=== PATIENT | female | born 1950 | race Caucasian/White ===

== ENCOUNTER 2020-02-20 12:47 | Observation (INO) | payer MEDICARE, OTHER ==
[2020-02-20] MEDS ORDERED: Morphine 4 MG/ML VIAL ONE (13:28)
[2020-02-20 17:19] VITALS: BMI 27.1
[2020-02-20] MEDS ORDERED: TETANUS AND DIPHTHERIA TOX/PF 0.5 ML DISP.SYRIN IM ONE (17:30)
[2020-02-20] MEDS ORDERED: Crotalidae Polyvlnt Antivenin 2 GM in Sodium Chloride 0.9% 250 ML 250 ML IVPB PRN (17:30)
[2020-02-20] MEDS ORDERED: Ondansetron PF 4 MG/2 ML Vial IVP PRN (17:30)
[2020-02-20] MEDS ORDERED: Crotalidae Polyvlnt Antivenin 4 GM in Sodium Chloride 0.9% 250 ML 250 ML IVPB SCH (17:30)
[2020-02-20] MEDS ORDERED: Morphine 4 MG/ML VIAL SLOW IVP PRN (17:30)
[2020-02-20] MEDS ORDERED: diphenhydrAMINE 50 MG/ML VIAL IVP PRN (17:30)
[2020-02-20] MEDS ORDERED: HOLD ALL ANTI-COAGULANTS/ANTI-PLATELETS/NSAIDS PO SCH (17:30)
[2020-02-20] MEDS ORDERED: Morphine 2 MG/ML SYRINGE SLOW IVP PRN (17:42)
--- NOTE | 2020-02-20 18:08 | PDOC.HHP ---
Hospitalist HPI - History of Present Illness snake bite History of Present Illness: THis is a 69 year old female with no past medical history who presents to the ER after a snake bite. THe patient states she was picking cucumbers from her garden when a copperhead snake bit her. Shortly afterwards she noticed pain in her index finger and swelling extending up to her wrist. She states the swelling was so severe she was unable to bend her fingers and her index finger was touching her other fingers. SHe denies fevers, chills, shortness of breath, cough. ED Course: WHen the patient presented to the ER, her vitals were noted to be stable. She received 4 vials of Crofab treatment and was admitted for further monitoring. Patient reports that her wrist swelling has improved from the drawn margins and she can now bend her fingers. Hospitalist ROS - Review of Systems Constitutional: denies: fever, chills Eyes: denies: pain ENT: denies: ear discharge Respiratory: denies: cough, dry, shortness of breath Cardiovascular: denies: chest pain, palpitations, orthopnea Gastrointestinal: denies: nausea, vomiting, abdominal pain, diarrhea Genitourinary: denies: dysuria, frequency, incontinence, hematuria Musculoskeletal: denies: neck pain, shoulder pain Hospitalist History - Past Surgical History Past Surgical History: reports: Hysterectomy - Family History Family History: reports: no pertinent history - Social History Smoking Status: Former smoker (was an occasional smoker) Alcohol: reports: Occassional Drugs: reports: none Living Situation: Other (with signifiant other) - Exam General Appearance: NAD, awake alert Eye: PERRL, anicteric sclera ENT: normocephalic atraumatic, no oropharyngeal lesions Neck: no JVD Heart: RRR, no murmur, no gallops, no rubs Respiratory: CTAB, no wheezes, no rales, no ronchi Gastrointestinal: soft, non-tender, non-distended, normal bowel sounds Extremities: no cyanosis, no clubbing, no edema Skin: normal turgor, no lesions, no rashes Neurological: cranial nerve grossly intact, normal sensation to touch, no focal deficits, no new deficit Musculoskeletal: normal tone, normal strength, no muscle wasting Psychiatric: normal affect, normal behavior, A&O x 3, oriented to person Hospitalist H&P A/P - Plan Plan: This is a 69 year old female who presented to the ER after a snakebite Snake bite with surrounding cellulitis - s/p first infusion of Crofab. Will give another dose now, then q6 per protocol - will start augmentin empirically as prophylaxis Hyperglycemia - glucose 129, will recheck A1C in the am
[2020-02-20 19:06] LABS: Platelet Count 237 thou/uL (130-400)
[2020-02-20 19:20] LABS: PTT 29.5 sec (22.9-36.1)
[2020-02-20 19:21] LABS: INR-International Normal Ratio 0.9; Prothrombin Time 12.4 sec (12.0-14.7)
[2020-02-20] MEDS ORDERED: Crotalidae Polyvlnt Antivenin 2 GM in Sodium Chloride 0.9% 250 ML 250 ML IVPB SCH (20:00)
[2020-02-20] MEDS: Amoxicillin/Potassium Clav 875 MG TAB PO SCH (20:11)
[2020-02-20] MEDS: Crotalidae Polyvlnt Antivenin 2 GM in Sodium Chloride 0.9% 250 ML 250 ML IVPB SCH (20:11)
[2020-02-21] MEDS: Crotalidae Polyvlnt Antivenin 2 GM in Sodium Chloride 0.9% 250 ML 250 ML IVPB SCH ×2 (02:27→09:19)
[2020-02-21] MEDS: Amoxicillin/Potassium Clav 875 MG TAB PO SCH (09:19)
[2020-02-21 11:40] LABS: Mean Corpuscular HGB CONC 33.8 g/dL (32.0-36.0); Mean Corpuscular Hemoglobin 32.6 pg (27.0-31.0); Mean Corpuscular Volume 96.3 fL (78.0-98.0); Mean Platelet Volume 8.4 fL (7.4-10.4); Platelet Count 229 thou/uL (130-400); RBC Distribution Width 12.2 % (11.5-14.5); Red Blood Cell (RBC) Count 4.61 mill/uL (4.20-5.40); White Blood Cell (WBC) Count 8.2 thou/uL (4.8-10.8)
[2020-02-21 11:46] LABS: Hemoglobin A1c 5.6 % (4.0-6.0); INR-International Normal Ratio 0.9; Prothrombin Time 11.8 sec (12.0-14.7)
[2020-02-21 11:47] LABS: PTT 28.7 sec (22.9-36.1)
[2020-02-21 11:57] LABS: Anion Gap 12 mmol/L (10-20); BUN (Urea Nitrogen) 13 mg/dL (9.8-20.1); Calc. Creatinine Clearance 93 mL/min (70-130); Calcium 8.7 mg/dL (7.8-10.44); Carbon Dioxide 25 mmol/L (23-31); Chloride 106 mmol/L (98-107); Estimated GFR-MDRD 86; Glucose 111 mg/dL (80-115); Potassium 3.9 mmol/L (3.5-5.1); Sodium 139 mmol/L (136-145)
[2020-02-21 12:08] VITALS: BP 121/74; TEMP 98.5
--- NOTE | 2020-02-22 02:34 | DIS ---
DATE OF ADMISSION: 02/20/2020 DATE OF DISCHARGE: 02/21/2020 DISCHARGE DIAGNOSES: 1. Right index finger cellulitis secondary to snake bite. 2. Prediabetes. CONSULTATIONS: None. PROCEDURES: None. BRIEF HISTORY OF PRESENT ILLNESS: This is a 69-year-old female, who presented to the emergency room after a snake bit her right index finger. She then had some swelling of her index finger extending up to her wrist. She was unable to bend her fingers. She went to an outside hospital in [place] and was given CroFab and was transferred here. HOSPITAL COURSE: Snake bite with cellulitis of the right index finger: The patient was noted to have swelling all the way up to her wrist. She did have some improvement after her first infusion of CroFab; however, her swelling did not go down until approximately 6 hours after. Therefore, she was given three additional doses of maintenance CroFab. The following morning she still had swelling of her index finger and some tenderness with the erythema. However, the swelling of her hand was much better and wrist swelling resolved.r. The patient states that she was able to flex her fingers for the first time, which she was not able to do the day prior. She was started on Augmentin on 02/19 and will be discharged with this as prophylaxis for an additional 6 days. She also received tetanus shot while in the hospital. She was advised to follow up with her PCP in a week after completion of her antibiotics. Prediabetes: The patient had a glucose of 129. Her hemoglobin A1c was checked, which was 5.6. She was advised on weight loss on discharge. DISCHARGE PHYSICAL EXAMINATION: VITAL SIGNS: Temperature 98.5, heart rate 60, respiratory rate 17, O2 saturation 96% on room air, and blood pressure 121/74. GENERAL: The patient is alert, awake, and oriented x3. CVS: Regular rate and rhythm with no murmurs, rubs, or gallops. LUNGS: Clear to auscultation bilaterally. MUSCULOSKELETAL: The patient has erythema and 3+ swelling of her right index finger with tenderness to palpation. She has erythema of the distal phalanx; however, normal skin color over the proximal phalanx. She has some mild swelling of her hand, but there is no palpable tenderness. She has full range of motion of her hand and her digits. ABDOMEN: Positive bowel sounds. Soft, nontender, and nondistended. LOWER EXTREMITIES: No edema. PERTINENT LABORATORY DATA: CBC 02/20: Normal. BMP 02/20: Normal. Hemoglobin A1c: 5.6. Coag studies 02/20: PT 11.8, INR 0.9, PTT 28.7, and fibrinogen 389. DISCHARGE CONDITION: Stable. ACTIVITY: As tolerated. DIET: Regular diet. DISCHARGE MEDICATIONS: Augmentin 875 mg p.o. q.12 hours for 6 more days. DISCHARGE INSTRUCTIONS: The patient to follow up with her PCP in a week. She should focus on weight loss for her prediabetes and consider further monitor in this on discharge. Job ID: [id number]
== END 2020-02-21 13:05 | disposition home or self-care (01) ==
LOC: ERS 12:47 → T4-B 17:08 → INTOOBSV 17:08
PROVIDERS: ADMIT Internal Medicine; ATTEND Internal Medicine
DX: T63.091A Toxic effect of venom of other snake, accidental (unintentional), initial encounter (principal); L03.011 Cellulitis of right finger; R73.03 Prediabetes; R73.9 Hyperglycemia, unspecified; Z87.891 Personal history of nicotine dependence; Y92.007 Garden or yard of unspecified non-institutional (private) residence as the place of occurrence of the external cause
CPT/HCPCS: 80048; 83036; 85027; 85049; 85384 ×2; 85610 ×2; 85730 ×2; 96365; 96366; 96375; 99284; G0378 ×2; J0840 ×2; 36415; 96374; J2270; J7050